=== PATIENT | male | born 1980 | race Caucasian/White ===

== ENCOUNTER 2023-05-26 09:27 | Emergency (ER) | payer OTHER, SELFPAY ==
[2023-05-26 09:28] VITALS: BP 126/96
--- NOTE | 2023-05-26 10:36 | ED.GENMED ---
History of Present Illness
<Melina Booth PA-C - Last Filed: 05/28/23 00:38>
General
Chief Complaint: Musculo-Skeletal Complaint
Source: patient
Exam Limitations: none
Time Seen by Provider: 05/26/23 09:49
Nursing documentation reviewed up to this point in time: agreed with
Travel History
Have you had any contact with someone who has COVID-19?: No
Do you have any symptoms of coronavirus? Fever > 100 degrees, chills, cough, shortness of breath, sore throat, loss of taste or smell, muscle aches, or headache?: No
History of Present Illness
History of Present Illness:
Patient is a 43 y.o male with hx HTN presenting for evaluation of injury of left knee. Patient states that he slipped on ice while in the parking lot of work earlier this morning around 8AM and his left knee 'popped out'. He states that he was able
to pop it back in himself. He presents to the emergency department with persistent pain and swelling of left knee. He denies any numbness/tingling in the leg. He has been able to weight-bear on knee with some pain. He did not hit his head or
sustain any other injuries in the fall.
Phy Exam
<Melina Booth PA-C - Last Filed: 05/28/23 00:38>
Physical Exam
Physical Exam:
General: Well appearing and non-toxic
Vitals: Vital signs stable, afebrile
HEENT: Atraumatic, normocephalic; protecting airway
Neck: appears supple, no cervical spine or midline spinal tenderness
CV: Regular rate rhythm, heart sounds normal, no evidence of cyanosis
Resp: No evidence of respiratory distress, lungs clear no accessory muscle use
Abd: Soft and nontender, non-distended
Extremities: Significant joint effusion of left knee, patella seems appropriately positioned, strong popliteal pulses bilaterally; medial joint line tenderness with some laxity on varus stress
Neuro: alert
Psych: Normal affect
Skin: Intact, no rashes
Course
<Melina Booth PA-C - Last Filed: 05/28/23 00:38>
Orders/Labs/Results
Orders:
Orders
05/26/23 10:12
Knee Immobilizer Left-Treatmen ONCE
Knee, Left 4 or More Views [CR Knee - Left 4 Or More View*] Urgent
Comment:
Reason For Exam: fall, patellar
05/26/23 10:53
Crutches-Treatment ONCE
Vital Signs
Initial and Last Documented VS:
Initial Vital Signs
Temp Pulse Resp BP Pulse Ox
98.0 F 86 18 126/96 97
05/26/23 09:28 05/26/23 09:28 05/26/23 09:28 05/26/23 09:28 05/26/23 09:28
Last Documented Vital Signs
Temp Pulse Resp BP Pulse Ox
98.0 F 86 18 126/96 97
05/26/23 09:28 05/26/23 09:28 05/26/23 09:28 05/26/23 09:28 05/26/23 09:28
<Parht Jacob MD - Last Filed: 05/26/23 11:08>
Orders/Labs/Results
Orders:
Orders
05/26/23 10:12
Knee Immobilizer Left-Treatmen ONCE
Knee, Left 4 or More Views [CR Knee - Left 4 Or More View*] Urgent
Comment:
Reason For Exam: fall, patellar
05/26/23 10:53
Crutches-Treatment ONCE
Vital Signs
Initial and Last Documented VS:
Initial Vital Signs
Temp Pulse Resp BP Pulse Ox
98.0 F 86 18 126/96 97
05/26/23 09:28 05/26/23 09:28 05/26/23 09:28 05/26/23 09:28 05/26/23 09:28
Last Documented Vital Signs
Temp Pulse Resp BP Pulse Ox
98.0 F 86 18 126/96 97
05/26/23 09:28 05/26/23 09:28 05/26/23 09:28 05/26/23 09:28 05/26/23 09:28
<Melina Booth PA-C - Last Filed: 05/28/23 00:38>
MDM/Problems Addressed
Differential Diagnosis Includes:
Patellar dislocation, meniscus injury, MCL tear, doubt fracture
MDM/Problems Addressed:
Patient is a 43-year-old male presenting for evaluation of left knee injury. He slipped on ice at work in the parking lot and fell twisting his knee. He states his knee popped out but he was able to pop back into place. He is presenting with
persistent pain and swelling of left knee. No numbness or tingling. Physical exam as document above. He is hemodynamic stable. He does have a significant joint effusion on his left knee with some medial joint line tenderness and laxity on varus
stress. He has minimal tenderness to patella and patella appears appropriately and placed. Left leg neurovascular intact. Immediately following my examination and prior to me leaving the room�his kneecap dislocated again laterally and he popped
it right back in. Will get x-ray of knee. Offered patient Tylenol/Advil for pain. He declined.
X-ray shows no evidence of acute fracture or dislocation of left knee. Given witnessed lateral dislocation of patella�likely transient patellar dislocation with associated ligamentous injury meniscus versus MCL. Will place patient in knee
immobilizer. He is stable for discharge with Ortho follow-up, return precautions. Patient comfrotable with this plan. All questions answered.
Chronic conditions affecting care:
Hypertension
Acute Exacerbation and/or Progression of Chronic Illness:
Patellar dislocation, ligamentous injury of left knee
<Melina Booth PA-C - Last Filed: 05/28/23 00:38>
*Radiology
Radiology exam reviewed: preliminary read by ED provider and radiology read reviewed
*Pulse Oximetry
Patient hypoxic: no
*Kiln Car Unloader Interpretation
Rate: Kiln Car Unloader- N/A
*Critical Care Note
Total Time (30-74mins, 75-104mins- exclusive of procedures): Not Applicable
ED Attending Note
<Melina Booth PA-C - Last Filed: 05/28/23 00:38>
-
Portions of this chart may have been created with voice recognition software.� Occasional wrong word or��sound alike� substitutions may have occurred due to the inherent limitations of voice recognition software.
<Parth Jacob MD - Last Filed: 05/26/23 11:08>
ED Attending Note
Patient seen and examined by attending physician: Yes
ED Attending Note:
HPI: 43-year-old male with a history of hypertension presents for evaluation of a left knee injury. Patient reports that he slipped while at work and twisted his left knee. He says that he noticed immediate displacement of his patella laterally.
He was able to push it back into place. He came to the emergency room with continued pain and swelling in the knee. He denies any pain in the ankle or hip on the left. He denies any numbness or weakness in the extremity. While he was here
waiting he says that his patella once again popped out laterally and he was able to push it back into place once again.
ROS: Positive for knee pain and swelling; negative for hip or ankle pain, negative for fever, negative for headache, neck pain, back pain
Physical exam:
General: Well appearing and non-toxic
HEENT: protecting airway
Neck: appears supple
CV: No evidence of cyanosis
Resp: No accessory muscle use
Abd: Non-distended
Extremities: Patient has significant joint effusion in the left knee; patella appears appropriately positioned with no significant pain on patellar manipulation; he does have some laxity on varus strain; he has a good strong DP and PT pulse left
lower extremity
Neuro: Alert
Psych: Normal affect
Skin: Intact
Differential diagnosis: Transient patellar dislocation, MCL injury, meniscus injury, fracture less likely
Medical decision makin-year-old male presents for evaluation of left knee injury. He says his patella was displaced x 2 and he was able to push it back into place. Exam is as above. He was sent for an x-ray which shows no dislocation or
subluxation of the patella, no fractures; possibly transient patellar dislocation and self relocation versus MCL injury. Placed in a knee immobilizer will provide crutches. Offered Tylenol/Motrin but patient declined. Stable for discharge to
follow-up with orthopedics outpatient.
Chronic conditions affecting care: N/A
Acute exacerbation or progression of chronic illness: N/A
History source: Patient
Data reviewed: N/A
Medications/testing considered: Considered Tylenol and Motrin but patient declined
Social determinants of health: N/A
Discussion with other providers: N/A
Discharge Plan
Departure
Patient Disposition: Home (Routine Discharge)
Date of Disposition: 05/26/23
Time of Disposition: 11:01
Patient with high blood pressure during this ER visit?: Yes
Condition: Good
Covid-19: Not Applicable
Discharge Problem:
Lateral dislocation of left patella, Injury of knee, left
Instructions: Ligament Injuries in the Knee (DC), Dislocated Kneecap (DC), BLOOD PRESSURE
Referrals:
Steven Urena MD [Active] - Call in 1-3 days for appt
Ez Johnson MD [Family Provider] -
Stand Alone Forms: Return to Work
Activity Restrictions/Additional Instructions:
-Return to the emergency department with any chest pain, shortness of breath, high fevers, severe headache, intractable pain, worsening in current symptoms, or any other concerns
-You can take tylenol and ibuprofen as needed for pain. You can apply ice to reduce swelling
-Keep knee in immobilizer and remain non-weight bearing until you follow-up with orthopedics. You should follow-up with orthopedics within a week.
-You should follow-up with your workman comp physician as soon as possible to ensure you follow-up with a covered orthopedic
Interventions
Interventions:
*Risk Screen - Suicide Last Done: 05/26/23 11:34
*General Assessment Last Done: 05/26/23 11:34
*Neglect/Abuse Screening Last Done: 05/26/23 11:34
ED- Fall Risk Assessment Last Done: 05/26/23 11:34
*ED COVID-19 Vaccine History Last Done: 05/26/23 11:34
*Nursing Disposition Last Done: 05/26/23 11:34
ED-Musculoskeletal Assessment Last Done: 05/26/23 11:34
Discharge Date and Time
Discharge Date/Time: 05/26/23 11:35
== END 2023-05-26 11:35 | disposition home or self-care (01) ==
LOC: EMR 09:27
PROVIDERS: EMERGENCY PHYSICIAN Emergency Medicine; FAMILY PHYSICIAN Family Medicine
DX: S83.015A Lateral dislocation of left patella, initial encounter (principal); W00.0XXA Fall on same level due to ice and snow, initial encounter; Y99.0 Civilian activity done for income or pay; I10 Essential (primary) hypertension
CPT/HCPCS: 99283; 29505; 73564